=== PATIENT | male | born 1985 ===

== ENCOUNTER 2024-02-26 08:02 | Observation (INO) | payer OTHER ==
[~2024-02-26] VITALS: Ht 193 cm; Wt 86.5 kg
[2024-02-26 08:40] LABS: Calcium, Ionized (POC) 1.14 mmol/L (1.10-1.46); Chloride (POC) 104 mmol/L (98-108); Creatinine (POC) 0.9 mg/dL (0.8-1.3); Glucose (ISTAT POC) 585 mg/dL (70-99); Hemoglobin (POC) 17.7 g/dL (13.5-17.5); Potassium (POC) 5.3 mmol/L (3.5-5.5); Sodium (POC) 132 mmol/L (135-148); Total CO2 (POC) 9 mmol/L (21-32)
[2024-02-26] MEDS ORDERED: NS 1,000 ML IV SCH (08:50)
[2024-02-26 08:53] LABS: BASOPHILS ABSOLUTE AUTO 0.03 K/mm3 (0.00-0.23); BASOPHILS PERCENT AUTO 0 % (0-2); EOSINOPHILS PERCENT AUTO 0 % (0-6); Hematocrit 47.9 % (37.0-53.0); Hemoglobin 16.4 g/dL (13.5-17.5); IMMATURE GRAN ABSOLUTE AUTO 0.04 K/mm3 (0.00-0.10); IMMATURE GRAN PERCENT AUTO 0 % (0-1); LYMPHOCYTES ABSOLUTE AUTO 0.68 K/mm3 (0.84-5.20); LYMPHOCYTES PERCENT AUTO 5 % (21-46); MONOCYTES ABSOLUTE AUTO 0.38 K/mm3 (0.16-1.47); MONOCYTES PERCENT AUTO 3 % (4-13); Mean Corpuscular HGB 30.3 pg (26.0-34.0); Mean Corpuscular HGB Conc 34.2 g/dL (31.5-36.5); Mean Corpuscular Volume 88 fL (80-100); Mean Platelet Volume 11.4 fL (9.1-12.4); NEUTROPHILS ABSOLUTE AUTO 11.44 K/mm3 (1.96-9.15); NEUTROPHILS PERCENT AUTO 91 % (41-73); Platelet Count 321 K/mm3 (150-400); RDW Coefficient Variation 12.7 % (11.7-14.2); RDW Standard Deviation 40.4 fL (35.1-46.3); Red Blood Cell Count 5.42 M/mm3 (4.30-5.90); White Blood Cell Count 12.57 K/mm3 (4.00-11.30)
[2024-02-26 08:59] LABS: Base Excess Venous -22.8 mmol/L; Bicarbonate Venous 10.4 mmol/L (24.0-30.0); pH Blood Venous 7.11 (7.34-7.37)
[2024-02-26] MEDS ORDERED: Insulin Human Regular 100 UNIT in NS 100 ML IV SCH (09:10)
[2024-02-26] MEDS ORDERED: NS KCl 20mEq 1,000 ML IV SCH (09:10)
[2024-02-26 09:27] LABS: Magnesium, Blood 2.3 mg/dL (1.6-2.4)
[2024-02-26 10:03] LABS: Albumin, Blood 4.1 g/dL (3.4-5.0); Beta-hydroxybutyrate 108.4 mg/dL (0.2-2.8); Bilirubin, Total 0.7 mg/dL (0.1-1.0); Bun/Creatinine Ratio 14.5 (12.0-20.0); Calcium, Blood 9.6 mg/dL (8.5-10.1); Creatinine, Blood 0.83 mg/dL (0.60-1.20); Globulin, Blood 4.1 g/dL (2.2-4.0); Phosphorus, Blood 4.9 mg/dL (2.5-4.9); Potassium, Blood 4.3 mmol/L (3.5-5.5); Total Protein, Blood 8.2 g/dL (6.4-8.2)
[2024-02-26 11:24] LABS: Magnesium, Blood 2.2 mg/dL (1.6-2.4)
[2024-02-26 11:40] LABS: Bun/Creatinine Ratio 13.3 (12.0-20.0); Calcium, Blood 8.6 mg/dL (8.5-10.1); Creatinine, Blood 0.75 mg/dL (0.60-1.20); Phosphorus, Blood 2.7 mg/dL (2.5-4.9); Potassium, Blood 4.1 mmol/L (3.5-5.5)
[2024-02-26] MEDS ORDERED: Lactated Ringer's 1,000 ML IV SCH (12:00)
[2024-02-26] MEDS ORDERED: FLU VACC TS2024-25(6MOS UP)/PF 45 MCG/0.5 ML SYRINGE IM SCH (12:00)
[2024-02-26] MEDS ORDERED: Ondansetron HCl 2 MG / ML 2ML Vial IV PRN ×2 (12:00→20:25)
[2024-02-26 12:57] LABS: Bun/Creatinine Ratio 13.3 (12.0-20.0); Calcium, Blood 9.1 mg/dL (8.5-10.1); Creatinine, Blood 0.75 mg/dL (0.60-1.20); Potassium, Blood 4.2 mmol/L (3.5-5.5)
[2024-02-26] MEDS ORDERED: D5W-1/2NS KCl 20mEq 1,000 ML IV SCH (13:50)
[2024-02-26] MEDS ORDERED: Sodium Phosphate 30 MM in Dextrose 5% 500 ML IV STA (13:53)
[2024-02-26 15:49] LABS: Bun/Creatinine Ratio 13.1 (12.0-20.0); Calcium, Blood 8.7 mg/dL (8.5-10.1); Creatinine, Blood 0.69 mg/dL (0.60-1.20); Potassium, Blood 4.1 mmol/L (3.5-5.5)
[2024-02-26 20:00] VITALS: BP 106/69
[2024-02-26 20:08] LABS: Bun/Creatinine Ratio 13.6 (12.0-20.0); Calcium, Blood 8.6 mg/dL (8.5-10.1); Creatinine, Blood 0.59 mg/dL (0.60-1.20); Potassium, Blood 4.2 mmol/L (3.5-5.5)
[2024-02-26 20:30] VITALS: BP 111/78
[2024-02-26 20:45] VITALS: BP 112/78
[2024-02-26 21:00] VITALS: BP 118/82
[2024-02-26 22:00] VITALS: BP 97/74
[2024-02-26 23:00] VITALS: BP 105/78
[2024-02-27 03:42] LABS: BASOPHILS ABSOLUTE AUTO 0.04 K/mm3 (0.00-0.23); BASOPHILS PERCENT AUTO 1 % (0-2); EOSINOPHILS ABSOLUTE AUTO 0.06 K/mm3 (0.00-0.68); EOSINOPHILS PERCENT AUTO 1 % (0-6); Hematocrit 40.6 % (37.0-53.0); Hemoglobin 14.1 g/dL (13.5-17.5); IMMATURE GRAN ABSOLUTE AUTO 0.02 K/mm3 (0.00-0.10); IMMATURE GRAN PERCENT AUTO 0 % (0-1); LYMPHOCYTES ABSOLUTE AUTO 2.59 K/mm3 (0.84-5.20); LYMPHOCYTES PERCENT AUTO 30 % (21-46); MONOCYTES ABSOLUTE AUTO 0.79 K/mm3 (0.16-1.47); MONOCYTES PERCENT AUTO 9 % (4-13); Mean Corpuscular HGB 30.3 pg (26.0-34.0); Mean Corpuscular HGB Conc 34.7 g/dL (31.5-36.5); Mean Corpuscular Volume 87 fL (80-100); NEUTROPHILS ABSOLUTE AUTO 5.21 K/mm3 (1.96-9.15); NEUTROPHILS PERCENT AUTO 60 % (41-73); Platelet Count 237 K/mm3 (150-400); RDW Standard Deviation 40.7 fL (35.1-46.3); Red Blood Cell Count 4.66 M/mm3 (4.30-5.90); White Blood Cell Count 8.71 K/mm3 (4.00-11.30)
[2024-02-27 04:00] VITALS: BP 111/45
[2024-02-27 04:09] LABS: Bun/Creatinine Ratio 11.8 (12.0-20.0); Calcium, Blood 9.5 mg/dL (8.5-10.1); Creatinine, Blood 0.76 mg/dL (0.60-1.20)
[2024-02-27] MEDS ORDERED: Potassium Chloride 20 MEQ TabCR PO ONE (05:00)
[2024-02-27] MEDS ORDERED: Insulin Glargine-Yfgn 100 Unit/mL 3 ML SYR SC SCH (05:00)
[2024-02-27] MEDS ORDERED: Insulin Human Lispro 100 Units/ML 3ML Syringe SC SCH (07:30)
[2024-02-27] MEDS ORDERED: Enoxaparin 40 MG/0.4 ML SYR SC SCH (09:00)
[2024-02-27] MEDS ORDERED: Pioglitazone HCl 15 MG Tab PO SCH (09:00)
[2024-02-27] MEDS ORDERED: INSULIN GL300 UNIT/2 SC (11:48)
[2024-02-27] MEDS ORDERED: PIOG30 PO (11:49)
[2024-02-27] MEDS ORDERED: INSULIN AS100 UNIT/6 SC (11:49)
[2024-02-27] MEDS ORDERED: METF500 PO (11:50)
[2024-02-27] MEDS ORDERED: LISI5 PO (11:50)
== END 2024-02-27 13:00 | disposition home or self-care (01) ==
LOC: ER 08:02 → ERHOLD 08:03 → ICUE 20:03
PROVIDERS: Student in an Organized Health Care Education/Training Program; ADMIT Internal Medicine
DX: E11.10 Type 2 diabetes mellitus with ketoacidosis without coma (principal); Z88.0 Allergy status to penicillin; Z88.5 Allergy status to narcotic agent; Z79.4 Long term (current) use of insulin; Z79.84 Long term (current) use of oral hypoglycemic drugs; Z79.899 Other long term (current) drug therapy; Z59.00 Homelessness unspecified
CPT/HCPCS: 36415; 80047; 80048; 80053; 82010; 82803; 82947; 83735; 84100; 85014; 85025; 93005; 93010; 96361; 96365; 96366; 96375; 99285-25; A9270; G0378; J1815; J2405; J3480; J7030; J7060

== ENCOUNTER 2024-03-04 15:46 | Observation (INO) | payer OTHER ==
[~2024-03-04] VITALS: Ht 193 cm; Wt 86.2 kg
[~2024-03-04 15:46] MED LIST: INSULIN AS100 UNIT/6 SC; INSULIN GL300 UNIT/2 SC; LISI5 PO; METF500 PO; PIOG30 PO
[2024-03-04] MEDS ORDERED: Lactated Ringer's 1,000 ML IV ONE ×2 (16:00→18:35)
[2024-03-04 16:14] LABS: Base Excess Venous -1.5 mmol/L; PCO2 Venous 31.5 mmHg (38-42); pH Blood Venous 7.46 (7.34-7.37)
[2024-03-04 16:15] LABS: BASOPHILS ABSOLUTE AUTO 0.02 K/mm3 (0.00-0.23); BASOPHILS PERCENT AUTO 0 % (0-2); EOSINOPHILS ABSOLUTE AUTO 0.03 K/mm3 (0.00-0.68); EOSINOPHILS PERCENT AUTO 1 % (0-6); Hematocrit 45.7 % (37.0-53.0); Hemoglobin 15.2 g/dL (13.5-17.5); IMMATURE GRAN ABSOLUTE AUTO 0.01 K/mm3 (0.00-0.10); IMMATURE GRAN PERCENT AUTO 0 % (0-1); LYMPHOCYTES ABSOLUTE AUTO 1.03 K/mm3 (0.84-5.20); LYMPHOCYTES PERCENT AUTO 19 % (21-46); MONOCYTES PERCENT AUTO 6 % (4-13); Mean Corpuscular HGB 30.5 pg (26.0-34.0); Mean Corpuscular HGB Conc 33.3 g/dL (31.5-36.5); Mean Corpuscular Volume 92 fL (80-100); Mean Platelet Volume 11.4 fL (9.1-12.4); NEUTROPHILS ABSOLUTE AUTO 3.92 K/mm3 (1.96-9.15); NEUTROPHILS PERCENT AUTO 74 % (41-73); Platelet Count 226 K/mm3 (150-400); RDW Coefficient Variation 12.9 % (11.7-14.2); Red Blood Cell Count 4.99 M/mm3 (4.30-5.90); White Blood Cell Count 5.31 K/mm3 (4.00-11.30)
[2024-03-04 16:29] LABS: Albumin, Blood 3.6 g/dL (3.4-5.0); Albumin/Globulin Ratio 0.9 (0.8-1.8); Bilirubin, Total 0.4 mg/dL (0.1-1.0); Bun/Creatinine Ratio 26.5 (12.0-20.0); Calcium, Blood 10.2 mg/dL (8.5-10.1); Creatinine, Blood 0.64 mg/dL (0.60-1.20); Globulin, Blood 3.9 g/dL (2.2-4.0); Potassium, Blood 4.7 mmol/L (3.5-5.5); Total Protein, Blood 7.5 g/dL (6.4-8.2)
[2024-03-04 16:40] LABS: Source, Urine Clean Catch
[2024-03-04 16:45] LABS: Appearance, Urine Clear (Clear); Bilirubin, Urine Neg (Neg); Blood, Urine Neg (Neg); Glucose Qualitative, Urine 4+ (Neg); Ketones, Urine Neg (Neg); Leukocyte Esterase, Urine Neg (Neg); Nitrite, Urine Neg (Neg); Protein, Urine Neg (Neg); Urobilinogen, Urine NORM (Normal)
[2024-03-04] MEDS ORDERED: Potassium Chl 20MEQ/Water100ML 100 ML IV ONE (16:50)
[2024-03-04] MEDS ORDERED: Insulin Human Regular 100 UNIT in NS 100 ML IV SCH (16:50)
[2024-03-04 16:53] LABS: Color, Urine Pale Yellow (P-Yellow)
[2024-03-04 17:24] LABS: Beta-hydroxybutyrate 3.4 mg/dL (0.2-2.8)
[2024-03-04 17:25] LABS: CORONAVIRUS COVID-19 AG Negative (NEGATIVE); INFLUENZA A AG Negative (NEGATIVE); INFLUENZA B AG Negative (NEGATIVE)
[2024-03-04 17:43] LABS: Glucose, Blood 802 mg/dL (70-99)
[2024-03-04] MEDS ORDERED: Lactated Ringer's 1,000 ML IV SCH (19:20)
[2024-03-04] MEDS ORDERED: Metoclopramide HCl 5MG / ML 2ML Vial IV PRN (19:20)
[2024-03-04] MEDS ORDERED: FLU VACC TS2024-25(6MOS UP)/PF 45 MCG/0.5 ML SYRINGE IM SCH (19:20)
[2024-03-04] MEDS ORDERED: Dextrose 50% 50 ML Syringe IV PRN (19:20)
[2024-03-04] MEDS ORDERED: Ondansetron HCl 2 MG / ML 2ML Vial IV PRN (19:20)
[2024-03-04 21:41] LABS: Bun/Creatinine Ratio 19.2 (12.0-20.0); Creatinine, Blood 0.68 mg/dL (0.60-1.20); Potassium, Blood 3.8 mmol/L (3.5-5.5)
[2024-03-05] MEDS ORDERED: Enoxaparin 40 MG/0.4 ML SYR SC SCH (09:00)
== END 2024-03-05 22:18 | disposition home or self-care (01) ==
LOC: ER 15:46 → ERHOLD 15:47
PROVIDERS: Student in an Organized Health Care Education/Training Program; ADMIT Internal Medicine
DX: E11.65 Type 2 diabetes mellitus with hyperglycemia (principal); E86.0 Dehydration; Z79.4 Long term (current) use of insulin; Z79.84 Long term (current) use of oral hypoglycemic drugs; Z88.0 Allergy status to penicillin; Z88.5 Allergy status to narcotic agent; Z59.00 Homelessness unspecified
CPT/HCPCS: 71045; 80048; 80053; 81003; 82010; 82803; 82947; 83690; 83930; 85025; 87428-QW; 93005; 93010; 96361; 96374; 99285-25; G0378; J1815; J3480; J7120

== ENCOUNTER 2024-03-25 07:33 | Inpatient (IN) | payer OTHER ==
[~2024-03-25] VITALS: Ht 193 cm; Wt 80.9 kg
[2024-03-25] VITALS (14 sets, daily range): BP systolic 98–157; BP diastolic 60–110
[2024-03-25 07:50] LABS: BASOPHILS ABSOLUTE AUTO 0.04 K/mm3 (0.00-0.23); BASOPHILS PERCENT AUTO 0 % (0-2); EOSINOPHILS PERCENT AUTO 0 % (0-6); Hematocrit 48.2 % (37.0-53.0); Hemoglobin 15.9 g/dL (13.5-17.5); IMMATURE GRAN ABSOLUTE AUTO 0.09 K/mm3 (0.00-0.10); IMMATURE GRAN PERCENT AUTO 1 % (0-1); LYMPHOCYTES ABSOLUTE AUTO 0.74 K/mm3 (0.84-5.20); LYMPHOCYTES PERCENT AUTO 4 % (21-46); MONOCYTES ABSOLUTE AUTO 0.86 K/mm3 (0.16-1.47); MONOCYTES PERCENT AUTO 5 % (4-13); Mean Corpuscular HGB 30.8 pg (26.0-34.0); Mean Corpuscular Volume 93 fL (80-100); Mean Platelet Volume 10.4 fL (9.1-12.4); NEUTROPHILS ABSOLUTE AUTO 14.99 K/mm3 (1.96-9.15); NEUTROPHILS PERCENT AUTO 90 % (41-73); Platelet Count 338 K/mm3 (150-400); RDW Coefficient Variation 12.5 % (11.7-14.2); RDW Standard Deviation 43.3 fL (35.1-46.3); Red Blood Cell Count 5.17 M/mm3 (4.30-5.90); White Blood Cell Count 16.72 K/mm3 (4.00-11.30)
[2024-03-25] MEDS ORDERED: Lactated Ringer's 1,000 ML IV ONE ×3 (07:50→09:45)
[2024-03-25 07:56] LABS: Bicarbonate Venous 7.7 mmol/L (24.0-30.0); pH Blood Venous 6.94 (7.34-7.37)
[2024-03-25 07:57] LABS: Base Excess Venous -27.2 mmol/L; PCO2 Venous 23.6 mmHg (38-42)
[2024-03-25 08:33] LABS: Beta-hydroxybutyrate 109.8 mg/dL (0.2-2.8); Bilirubin, Total 0.6 mg/dL (0.1-1.0); Bun/Creatinine Ratio 13.5 (12.0-20.0); Calcium, Blood 9.1 mg/dL (8.5-10.1); Creatinine, Blood 0.96 mg/dL (0.60-1.20); Potassium, Blood 4.7 mmol/L (3.5-5.5)
[2024-03-25] MEDS ORDERED: Insulin Human Regular 100 UNIT in NS 100 ML IV SCH (08:40)
[2024-03-25] MEDS ORDERED: Potassium Chl 20MEQ/Water100ML 100 ML IV ONE ×2 (08:40→21:00)
[2024-03-25] MEDS ORDERED: Ondansetron HCl 2 MG / ML 2ML Vial IV ONE (09:10)
[2024-03-25] MEDS ORDERED: Sodium Bicarb 8.4% 1 MEQ/ML 50 ML Vial IV ONE (09:15)
[2024-03-25 09:46] LABS: Source, Urine Clean Catch
[2024-03-25 09:48] LABS: Appearance, Urine Clear (Clear); Bilirubin, Urine Neg (Neg); Blood, Urine 1+ (Neg); Color, Urine Yellow (P-Yellow); Glucose Qualitative, Urine 4+ (Neg); Ketones, Urine 4+ (Neg); Leukocyte Esterase, Urine Neg (Neg); Nitrite, Urine Neg (Neg); Protein, Urine 2+ (Neg); Specific Gravity, Urine 1.025 (1.003-1.022); Urobilinogen, Urine NORM (Normal)
[2024-03-25 09:57] LABS: Bacteria Rare /hpf; Hyaline Casts 0-2 /lpf (0-2); Red Blood Cells, Urine 0-2 /hpf (0-2); Squamous Epithelial Cells Rare /hpf (Few); White Blood Cells, Urine 0-2 /hpf (0-5)
[2024-03-25] MEDS ORDERED: Ondansetron HCl 2 MG / ML 2ML Vial IV PRN (10:15)
[2024-03-25] MEDS ORDERED: Dextrose 50% 50 ML Vial IV PRN (10:25)
[2024-03-25] MEDS ORDERED: D5W-1/2NS 1,000 ML IV SCH (10:30)
[2024-03-25 10:42] LABS: Base Excess Venous -25.2 mmol/L; Bicarbonate Venous 8.7 mmol/L (24.0-30.0); PCO2 Venous 19.7 mmHg (38-42); pH Blood Venous 7.05 (7.34-7.37)
[2024-03-25 11:04] LABS: Albumin, Blood 3.4 g/dL (3.4-5.0); Blood Urea Nitrogen 12 mg/dL (8-24); Bun/Creatinine Ratio 16.3 (12.0-20.0); Calcium, Blood 8.7 mg/dL (8.5-10.1); Chloride, Blood 111 mmol/L (98-108); Creatinine, Blood 0.74 mg/dL (0.60-1.20); Glomerular Filtration Rate 120 (60-); Glucose, Blood 303 mg/dL (70-99); Phosphorus, Blood 2.3 mg/dL (2.5-4.9); Potassium, Blood 4.6 mmol/L (3.5-5.5); Sodium, Blood 140 mmol/L (136-145)
[2024-03-25 11:07] LABS: Anion Gap 27 mmol/L (3-11); CO2, Blood 7 mmol/L (21-32)
--- NOTE | 2024-03-25 11:09 | NUR ---
ASSUMPTION OF CARE PT RECEIVING INSULIN 8.7UNITS/HR. PT IS ALERT AND ORIENTED. PARTICIPATES IN CONVERSATION AND CARE. C/O "HEARTBURN". HE IS ON RA WITH SPO2 >94%. RR 16-24. PT DENIES SOB. PT STS HE HAS NOT ATE SINCE WEDNESDAY NIGHT. PT USED URINAL, VOIDED 900ML. PROVIDER NOTIFIED OF "HEARTBURN" AND LR BOLUS STARTED. BED IN LOW POSITION, CALL LIGHT WITHIN REACH.
[2024-03-25] MEDS ORDERED: OZEMPIC2 MG/0.75 SQ (11:20)
[2024-03-25] MEDS ORDERED: ESCI10 PO (11:22)
[2024-03-25] MEDS ORDERED: Lactated Ringer's 1,000 ML IV SCH (11:35)
[2024-03-25 11:52] LABS: Base Excess Venous -24.9 mmol/L; Bicarbonate Venous 9.1 mmol/L (24.0-30.0); PCO2 Venous 18.9 mmHg (38-42); pH Blood Venous 7.06 (7.34-7.37)
[2024-03-25] MEDS ORDERED: Mag Hydrox/Al Hydrox/Simeth 18 ML,Lidocaine 2% Viscous Soln 9 ML,Atropine/Scopalam/Hyos... PO ONE (12:00)
[2024-03-25 12:37] LABS: Bun/Creatinine Ratio 16.2 (12.0-20.0); Calcium, Blood 9.2 mg/dL (8.5-10.1); Creatinine, Blood 0.68 mg/dL (0.60-1.20); Potassium, Blood 4.3 mmol/L (3.5-5.5)
[2024-03-25 13:10] LABS: Bicarbonate Venous 10.3 mmol/L (24.0-30.0); PCO2 Venous 22.6 mmHg (38-42); pH Blood Venous 7.11 (7.34-7.37)
[2024-03-25 13:37] LABS: Albumin, Blood 3.5 g/dL (3.4-5.0); Anion Gap 21 mmol/L (3-11); Blood Urea Nitrogen 11 mg/dL (8-24); Bun/Creatinine Ratio 16.1 (12.0-20.0); CO2, Blood 11 mmol/L (21-32); Calcium, Blood 9.1 mg/dL (8.5-10.1); Chloride, Blood 112 mmol/L (98-108); Creatinine, Blood 0.68 mg/dL (0.60-1.20); Glomerular Filtration Rate 123 (60-); Glucose, Blood 229 mg/dL (70-99); Potassium, Blood 4.2 mmol/L (3.5-5.5); Sodium, Blood 140 mmol/L (136-145)
[2024-03-25] MEDS ORDERED: Potassium Chloride 40 MEQ in NS 250 ML IV ONE (16:05)
[2024-03-25 16:35] LABS: Albumin, Blood 3.5 g/dL (3.4-5.0); Anion Gap 21 mmol/L (3-11); Blood Urea Nitrogen 10 mg/dL (8-24); Bun/Creatinine Ratio 14.9 (12.0-20.0); CO2, Blood 10 mmol/L (21-32); Calcium, Blood 9.1 mg/dL (8.5-10.1); Chloride, Blood 111 mmol/L (98-108); Creatinine, Blood 0.67 mg/dL (0.60-1.20); Glomerular Filtration Rate 123 (60-); Glucose, Blood 246 mg/dL (70-99); Phosphorus, Blood 1.8 mg/dL (2.5-4.9); Potassium, Blood 4.2 mmol/L (3.5-5.5); Sodium, Blood 138 mmol/L (136-145)
--- NOTE | 2024-03-25 17:47 | NUR ---
SHIFT SUMMARY PT RECEIVING INSULIN 5.6UNITS/HR AND D5 1/2NS 125ML/HR. KCL INFUSING. PT WAKENS TO VERBAL STIMULI. REMAINS A&OX4. NAUSEA/HEARTBURN HAS SUBSIDED. HE REMAINS ON RA WITH SPO2 >95%. RR 11-17. SINUS ON MONITOR WITH RATE BETWEEN 90S-110S. BP STABLE WITH MAP >65. PT REMAINS NPO. HE HAS VOIDED 900ML. BED IN LOW POSITION, CALL LIGHT WITHIN REACH.
[2024-03-25 20:23] LABS: Albumin, Blood 3.1 g/dL (3.4-5.0); Anion Gap 14 mmol/L (3-11); Blood Urea Nitrogen 10 mg/dL (8-24); Bun/Creatinine Ratio 16.1 (12.0-20.0); CO2, Blood 15 mmol/L (21-32); Calcium, Blood 8.7 mg/dL (8.5-10.1); Chloride, Blood 116 mmol/L (98-108); Creatinine, Blood 0.62 mg/dL (0.60-1.20); Glomerular Filtration Rate 126 (60-); Glucose, Blood 223 mg/dL (70-99); Phosphorus, Blood 0.9 mg/dL (2.5-4.9); Potassium, Blood 4.1 mmol/L (3.5-5.5); Sodium, Blood 141 mmol/L (136-145)
[2024-03-25 23:16] LABS: Anion Gap 12 mmol/L (3-11); Blood Urea Nitrogen 9 mg/dL (8-24); Bun/Creatinine Ratio 14.7 (12.0-20.0); CO2, Blood 17 mmol/L (21-32); Calcium, Blood 8.7 mg/dL (8.5-10.1); Chloride, Blood 116 mmol/L (98-108); Creatinine, Blood 0.61 mg/dL (0.60-1.20); Glomerular Filtration Rate 127 (60-); Glucose, Blood 188 mg/dL (70-99); Phosphorus, Blood 0.8 mg/dL (2.5-4.9); Potassium, Blood 3.8 mmol/L (3.5-5.5); Sodium, Blood 141 mmol/L (136-145)
[2024-03-26] VITALS (13 sets, daily range): BP systolic 85–134; BP diastolic 45–97
[2024-03-26 01:34] LABS: Albumin, Blood 2.9 g/dL (3.4-5.0); Anion Gap 13 mmol/L (3-11); Blood Urea Nitrogen 9 mg/dL (8-24); Bun/Creatinine Ratio 16.7 (12.0-20.0); CO2, Blood 16 mmol/L (21-32); Calcium, Blood 8.4 mg/dL (8.5-10.1); Chloride, Blood 116 mmol/L (98-108); Creatinine, Blood 0.54 mg/dL (0.60-1.20); Glomerular Filtration Rate 132 (60-); Glucose, Blood 180 mg/dL (70-99); Phosphorus, Blood 1.6 mg/dL (2.5-4.9); Potassium, Blood 3.5 mmol/L (3.5-5.5); Sodium, Blood 141 mmol/L (136-145)
[2024-03-26] MEDS ORDERED: Potassium Phosphate Dibasic 20 MM in Dextrose 5% 500 ML IV ONE (03:30)
[2024-03-26 04:31] LABS: Hematocrit 33.8 % (37.0-53.0); Hemoglobin 11.8 g/dL (13.5-17.5); Mean Corpuscular HGB Conc 34.9 g/dL (31.5-36.5); Mean Corpuscular Volume 89 fL (80-100); Mean Platelet Volume 10.1 fL (9.1-12.4); Platelet Count 206 K/mm3 (150-400); RDW Coefficient Variation 12.9 % (11.7-14.2); Red Blood Cell Count 3.81 M/mm3 (4.30-5.90); White Blood Cell Count 7.32 K/mm3 (4.00-11.30)
[2024-03-26 04:54] LABS: Albumin, Blood 2.8 g/dL (3.4-5.0); Anion Gap 10 mmol/L (3-11); Blood Urea Nitrogen 8 mg/dL (8-24); Bun/Creatinine Ratio 14.4 (12.0-20.0); CO2, Blood 17 mmol/L (21-32); Calcium, Blood 8.1 mg/dL (8.5-10.1); Chloride, Blood 117 mmol/L (98-108); Creatinine, Blood 0.55 mg/dL (0.60-1.20); Glomerular Filtration Rate 131 (60-); Glucose, Blood 167 mg/dL (70-99); Magnesium, Blood 1.7 mg/dL (1.6-2.4); Phosphorus, Blood 2.1 mg/dL (2.5-4.9); Potassium, Blood 3.3 mmol/L (3.5-5.5); Sodium, Blood 141 mmol/L (136-145)
--- NOTE | 2024-03-26 07:00 | NUR ---
ASSUMPTION OF CARE PT RECEIVING INSULIN 2.1UNITS/HR AND D5 1/2NS 125ML/HR. HE IS ALERT AND ORIENTED. ON RA WITH SPO2 >95%. SINUS ON MONITOR. BP STABLE. BED IN LOW POSITION, CALL LIGHT WITHIN REACH.
[2024-03-26 07:08] LABS: Base Excess Venous -11.2 mmol/L; Bicarbonate Venous 17.1 mmol/L (24.0-30.0); PCO2 Venous 23.2 mmHg (38-42); pH Blood Venous 7.38 (7.34-7.37)
[2024-03-26 07:24] LABS: Albumin, Blood 2.6 g/dL (3.4-5.0); Anion Gap 9 mmol/L (3-11); Blood Urea Nitrogen 8 mg/dL (8-24); Bun/Creatinine Ratio 14.8 (12.0-20.0); CO2, Blood 16 mmol/L (21-32); Calcium, Blood 8.1 mg/dL (8.5-10.1); Chloride, Blood 117 mmol/L (98-108); Creatinine, Blood 0.54 mg/dL (0.60-1.20); Glomerular Filtration Rate 132 (60-); Glucose, Blood 197 mg/dL (70-99); Potassium, Blood 3.4 mmol/L (3.5-5.5); Sodium, Blood 139 mmol/L (136-145)
[2024-03-26] MEDS ORDERED: Potassium Chloride 40 MEQ in NS 250 ML IV ONE (08:55)
[2024-03-26] MEDS ORDERED: Enoxaparin 40 MG/0.4 ML SYR SC SCH (09:00)
[2024-03-26] MEDS ORDERED: NS 250 ML IV PRN (09:40)
[2024-03-26] MEDS ORDERED: Insulin Glargine-Yfgn 100 Unit/mL 3 ML SYR SC SCH (10:00)
[2024-03-26 11:36] LABS: Albumin, Blood 2.6 g/dL (3.4-5.0); Anion Gap 12 mmol/L (3-11); Blood Urea Nitrogen 7 mg/dL (8-24); Bun/Creatinine Ratio 12.5 (12.0-20.0); CO2, Blood 15 mmol/L (21-32); Calcium, Blood 8.3 mg/dL (8.5-10.1); Chloride, Blood 114 mmol/L (98-108); Creatinine, Blood 0.56 mg/dL (0.60-1.20); Glomerular Filtration Rate 130 (60-); Glucose, Blood 187 mg/dL (70-99); Phosphorus, Blood 1.3 mg/dL (2.5-4.9); Potassium, Blood 4.1 mmol/L (3.5-5.5); Sodium, Blood 137 mmol/L (136-145)
[2024-03-26] MEDS ORDERED: Insulin Human Lispro 100 Units/ML 3ML Syringe SC SCH ×2 (12:30→17:30)
--- NOTE | 2024-03-26 13:27 | NUR ---
UPDATE SPOKE WITH HOSPITALIST AND RESIDENT. INSULIN GTT STOPPED DUE TO POTASSIUM. 40 MEQ KCL NOW INFUSING. INSTRUCTED TO RESTART INSULIN ONCE KCL IS INFUSED. PLAN TO START NON-SS SC INSULIN TIDM AND LONG ACTING INSULIN THIS EVENING.
[2024-03-26] MEDS ORDERED: Mag Hydrox/AL Hydrox/Simeth 30 ML UDC PO PRN (16:25)
[2024-03-26 17:24] LABS: Albumin, Blood 2.8 g/dL (3.4-5.0); Anion Gap 12 mmol/L (3-11); Blood Urea Nitrogen 6 mg/dL (8-24); Bun/Creatinine Ratio 7.6 (12.0-20.0); CO2, Blood 20 mmol/L (21-32); Calcium, Blood 8.4 mg/dL (8.5-10.1); Chloride, Blood 109 mmol/L (98-108); Creatinine, Blood 0.79 mg/dL (0.60-1.20); Glomerular Filtration Rate 117 (60-); Glucose, Blood 372 mg/dL (70-99); Phosphorus, Blood 1.2 mg/dL (2.5-4.9); Potassium, Blood 3.6 mmol/L (3.5-5.5); Sodium, Blood 137 mmol/L (136-145)
[2024-03-26] MEDS ORDERED: Potassium Chl 20MEQ/Water100ML 100 ML IV ONE (18:15)
--- NOTE | 2024-03-26 18:34 | NUR ---
SHIFT SUMMARY PT RECEIVING INSULIN 8.1UNITS/HR. HE IS ALERT AND ORIENTED. ON RA WITH SPO2 >95%. SINUS ON MONITOR, BP STABLE. PT HAS VOIDED TWICE THIS SHIFT. DIET ADVANCED, TOLERATING WELL. NON-SS SC INSULIN STARTED THIS AFTERNOON. PT REMAINS HYPERGLYCEMIC. PER HOSPITALIST, CONTINUE INSULIN GTT OVERNIGHT. START D5 1/2NS WHEN 2 GLUCOSE READINGS <250. KEEP ORDER FOR NON-SS SC INSULIN FOR TOMORROW. BED IN LOW POSITION, CALL LIGHT WITHIN REACH.
[2024-03-26] MEDS ORDERED: NS 1,000 ML IV SCH (19:20)
[2024-03-26 20:58] LABS: Bun/Creatinine Ratio 9.9 (12.0-20.0); Calcium, Blood 8.3 mg/dL (8.5-10.1); Creatinine, Blood 0.61 mg/dL (0.60-1.20); Potassium, Blood 3.4 mmol/L (3.5-5.5)
[2024-03-27] VITALS (12 sets, daily range): BP systolic 96–139; BP diastolic 46–94
[2024-03-27 00:25] LABS: BASOPHILS ABSOLUTE AUTO 0.03 K/mm3 (0.00-0.23); BASOPHILS PERCENT AUTO 1 % (0-2); EOSINOPHILS PERCENT AUTO 2 % (0-6); Hematocrit 33.1 % (37.0-53.0); Hemoglobin 11.6 g/dL (13.5-17.5); IMMATURE GRAN ABSOLUTE AUTO 0.01 K/mm3 (0.00-0.10); IMMATURE GRAN PERCENT AUTO 0 % (0-1); LYMPHOCYTES ABSOLUTE AUTO 1.19 K/mm3 (0.84-5.20); LYMPHOCYTES PERCENT AUTO 26 % (21-46); MONOCYTES ABSOLUTE AUTO 0.54 K/mm3 (0.16-1.47); MONOCYTES PERCENT AUTO 12 % (4-13); Mean Corpuscular HGB 30.4 pg (26.0-34.0); Mean Corpuscular Volume 87 fL (80-100); Mean Platelet Volume 9.9 fL (9.1-12.4); NEUTROPHILS PERCENT AUTO 59 % (41-73); Platelet Count 166 K/mm3 (150-400); RDW Coefficient Variation 12.9 % (11.7-14.2); Red Blood Cell Count 3.81 M/mm3 (4.30-5.90); White Blood Cell Count 4.57 K/mm3 (4.00-11.30)
[2024-03-27 00:44] LABS: Bun/Creatinine Ratio 9.5 (12.0-20.0); Calcium, Blood 8.3 mg/dL (8.5-10.1); Creatinine, Blood 0.53 mg/dL (0.60-1.20); Potassium, Blood 3.1 mmol/L (3.5-5.5)
[2024-03-27] MEDS ORDERED: Potassium Chloride 20 MEQ TabCR PO ONE ×3 (01:00→08:55)
[2024-03-27] MEDS ORDERED: Insulin Glargine-Yfgn 100 Unit/mL 3 ML SYR SC SCH (01:00)
--- NOTE | 2024-03-27 05:42 | NUR ---
SHIFT SUMMERY PT WAS TRANSITIONED OFF OF THE INSULIN DRIP OVERNIGHT. HE HAS EATEN A SNACK AND RECEIVED GLARGINE PER MD ORDER. HE IS ALERT AND ORIENTED X 4. HE HAS BEEN SR ON THE PSS DELIVERY PROFESSIONAL. BP WNL. AFEBRILE. HE IS ON ROOM AIR W/OXYGEN SAT > 95%. HE HAS HAD NO EPISODES OF DISTRESS THIS SHIFT.
[2024-03-27 06:05] LABS: BASOPHILS ABSOLUTE AUTO 0.03 K/mm3 (0.00-0.23); BASOPHILS PERCENT AUTO 1 % (0-2); EOSINOPHILS ABSOLUTE AUTO 0.13 K/mm3 (0.00-0.68); EOSINOPHILS PERCENT AUTO 3 % (0-6); Hemoglobin 12.1 g/dL (13.5-17.5); IMMATURE GRAN ABSOLUTE AUTO 0.01 K/mm3 (0.00-0.10); IMMATURE GRAN PERCENT AUTO 0 % (0-1); LYMPHOCYTES ABSOLUTE AUTO 1.81 K/mm3 (0.84-5.20); LYMPHOCYTES PERCENT AUTO 41 % (21-46); MONOCYTES ABSOLUTE AUTO 0.54 K/mm3 (0.16-1.47); MONOCYTES PERCENT AUTO 12 % (4-13); Mean Corpuscular HGB 30.9 pg (26.0-34.0); Mean Corpuscular HGB Conc 35.6 g/dL (31.5-36.5); Mean Corpuscular Volume 87 fL (80-100); Mean Platelet Volume 10.3 fL (9.1-12.4); NEUTROPHILS ABSOLUTE AUTO 1.93 K/mm3 (1.96-9.15); NEUTROPHILS PERCENT AUTO 43 % (41-73); Platelet Count 185 K/mm3 (150-400); RDW Coefficient Variation 12.8 % (11.7-14.2); RDW Standard Deviation 40.5 fL (35.1-46.3); Red Blood Cell Count 3.92 M/mm3 (4.30-5.90); White Blood Cell Count 4.45 K/mm3 (4.00-11.30)
[2024-03-27 06:30] LABS: Bun/Creatinine Ratio 5.6 (12.0-20.0); Calcium, Blood 8.8 mg/dL (8.5-10.1); Creatinine, Blood 0.54 mg/dL (0.60-1.20); Magnesium, Blood 1.8 mg/dL (1.6-2.4); Phosphorus, Blood 2.2 mg/dL (2.5-4.9); Potassium, Blood 3.4 mmol/L (3.5-5.5)
[2024-03-27] MEDS ORDERED: Potassium Chloride 40 MEQ in NS 250 ML IV ONE (07:20)
[2024-03-27] MEDS ORDERED: Potassium Phosphate Dibasic 30 MM in Dextrose 5% 500 ML IV STA (07:36)
[2024-03-27 12:59] LABS: Bun/Creatinine Ratio 7.8 (12.0-20.0); Creatinine, Blood 0.51 mg/dL (0.60-1.20); Potassium, Blood 3.5 mmol/L (3.5-5.5)
[2024-03-27] MEDS ORDERED: TOUJEO MAX300 UNIT/2 SC (13:03)
[2024-03-27] MEDS ORDERED: HUMALOG KW100 UNIT/1 SC (13:04)
[2024-03-27] MEDS ORDERED: ALUMINUM H320 MG/5 M PO (13:06)
--- NOTE | 2024-03-27 13:28 | NUR ---
Patient discharged at 1315. Pt verbalized understanding off all discharge instructions. All personal belongings take with pt. Pt ambulated independently out of unit to [facility].
--- NOTE | 2024-03-27 13:34 | NUR ---
All peripheral IVs removed at time of discharge
== END 2024-03-27 13:30 | disposition home or self-care (01) | DRG 638 ==
LOC: ER 07:33 → ICUE 10:13
PROVIDERS: Family Medicine; Internal Medicine; Student in an Organized Health Care Education/Training Program; ADMIT Hospitalist
DX: E11.10 Type 2 diabetes mellitus with ketoacidosis without coma (principal); Z59.02 Unsheltered homelessness; I10 Essential (primary) hypertension; T38.3X6A Underdosing of insulin and oral hypoglycemic [antidiabetic] drugs, initial encounter; Z79.4 Long term (current) use of insulin; Z91.138 Patient's unintentional underdosing of medication regimen for other reason; Z88.0 Allergy status to penicillin; Z88.5 Allergy status to narcotic agent; Z79.85 Long-term (current) use of injectable non-insulin antidiabetic drugs
CPT/HCPCS: 36415; 71045; 80048; 80053; 80069; 81001; 82010; 82803; 82947; 83036; 83690; 83735; 83930; 84100; 85025; 85027; 93005; 93010; 94762; 96361; 96365; 96375; 99285-25; A9270; J1650; J1815; J2405; J3480; J7030; J7040; J7042; J7050; J7060; J7120